=== PATIENT | female | born 1985 | race Caucasian/White ===

== ENCOUNTER 2020-10-16 11:39 | Emergency (ER) | payer SELFPAY ==
[~2020-10-16] VITALS: Ht 162.6 cm; Wt 76.0 kg
[2020-10-16 11:44] VITALS: BP 105/49
[2020-10-16] MEDS ORDERED: NAPR-681 PO (12:30)
== END 2020-10-16 12:46 | disposition home or self-care (01) ==
LOC: ER 11:39
DX: M25.571 Pain in right ankle and joints of right foot (principal)
CPT/HCPCS: 99282